=== PATIENT | female | born 1945 | race Caucasian/White ===

== ENCOUNTER → 2021-09-22 | Outpatient (CLI) | payer MEDICARE, OTHER ==
[~2021-09-22] MED LIST: NORCO 5-325 TA1 EACH PO
== END ==
LOC: KOH-I 13:09
DX: Z01.818 Encounter for other preprocedural examination (principal); S46.011A Strain of muscle(s) and tendon(s) of the rotator cuff of right shoulder, initial encounter; M24.111 Other articular cartilage disorders, right shoulder
CPT/HCPCS: 73200

== ENCOUNTER → 2021-11-29 | Outpatient (CLI) | payer MEDICARE, OTHER ==
[~2021-11-29] MED LIST changes: +ASPIRIN CHEWABL81 MG PO; +CHOLESTROL; +FISH OIL; +LEXAPRO10 MG PO; +LISINOPRIL10 MG PO; +ONDANSETRON ODT4 MG PO; +PROTONIX 40 MG40 M1 PO; +RESTORIL15 MG PO; +SINGULAIR10 MG PO; +SYNTHROID50 MCG PO; +XANAX0.5 MG PO
[2021-11-29 11:28] LABS: HEMOGLOBIN 12.5 gm/dl (12.3-15.3); RED BLOOD COUNT 4.08 M/UL (4.00-5.10)
[2021-11-29 12:01] LABS: BUN/CREATININE RATIO 23 (0-10)
== END ==
LOC: OPSV2 10:00 → EDSTATUS 10:00 → OPSV2 10:05
PROVIDERS: Orthopaedic Surgery
DX: Z01.818 Encounter for other preprocedural examination (principal); M19.011 Primary osteoarthritis, right shoulder
CPT/HCPCS: 36415; 71046; 80048; 85025; 93005

== ENCOUNTER → 2021-12-11 | Outpatient (CLI) | payer MEDICARE, OTHER ==
[~2021-12-11] MED LIST changes: +COQ-10 PO; -FISH OIL; +FISH OIL PO; +OXYCODONE HCL5 M1 PO; +TYLENOL EXTRA500 MG PO
[2021-12-11 09:25] LABS: BUN/CREATININE RATIO 23 (0-10)
== END ==
LOC: LAB 08:21
PROVIDERS: Anesthesiology
DX: Z01.812 Encounter for preprocedural laboratory examination (principal)
CPT/HCPCS: 80048; 86850; 86900; 86901